=== PATIENT | female | born 1980 | race African-American/Black ===

== ENCOUNTER 2023-06-10 19:01 | Emergency (ER) | payer MEDICAID, SELFPAY ==
[2023-06-10 19:09] VITALS: BP 140/90; PULSE 104; O2SAT 97
[2023-06-10 19:12] VITALS: BP 126/67; PULSE 101; RESP 18; TEMP 36.6; O2SAT 98; BMI 34.5
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
== END 2023-06-10 21:15 | disposition left against medical advice (07) ==
PROVIDERS: Emergency Provider Emergency Medicine
DX: S71.151A Open bite, right thigh, initial encounter (principal); Y04.1XXA Assault by human bite, initial encounter; M25.561 Pain in right knee; R51.9 Headache, unspecified; Y93.9 Activity, unspecified; Y92.9 Unspecified place or not applicable; Y99.9 Unspecified external cause status
CPT/HCPCS: 99282